=== PATIENT | female | born 1970 | race African-American/Black ===

== ENCOUNTER 2017-09-05 10:18 | Emergency (ER) | payer BC ==
[2017-09-05 10:24] VITALS: BP 137/80; BMI 45.3
--- NOTE | 2017-09-05 10:46 | DR.GENAD ---
HPI - PCP Primary Care Physician: NFD - Complaint/Symptoms Chief Complaint Doctors Comments: Patient presents with complaint of toothache. She admits to taking ibuprofen 400mg w/o relief. Chief Complaint:: FACE SWOLLEN. PT STATES "I HAVE A TOOTH BROKE IN FRONT." REDNESS NOTED ABOVE TOP LIP. EDEMA NOTED ALSO - Source History Provided: Patient - Mode of Arrival Mode of Arrival: Ambulatory - Timing Onset of Chief Complaint: 09/03/17 PMH - PMH Past Medical History: No Past Surgical History: Yes Surgical History: , Hysterectomy - Family History History of Family Medical Conditions: Yes Family Medical History: Diabetes Mellitus, Hypertension - Social History Does any household member use tobacco: No Alcohol Use: None Do you use any recreational Drugs:: No Lives With: Family Lives Where: Home - infectious screening In the last 2 months have you had wt loss of >10#?: NO Have you had fever, night sweats or hemotysis?: No Have you traveled outside the country in the last 6 months?: No Isolation: Standard ROS - Review of Systems Eyes: No Symptoms Reported ENTM: No Symptoms Reported Respiratoy: No Symptoms Reported Cardiovascular: No Symptoms Reported Gastrointestinal/Abdominal: No Symptoms Reported Genitourinary: No Symptoms Reported Neurological: No Symptoms Reported Musculoskeletal: No Symptoms Reported Integumentary: See HPI, Change in Color (erythema right maxilla) Hematologic/Lymphatic: No Symptoms Reported Endocrine: No Symptoms Reported Psychiatric: No Symptoms Reported All Other Systems: Reviewed and Negative PE - Vital Signs Vitals: Temperature 98.7 F Pulse Rate 70 Respiratory Rate 22 Blood Pressure 137/80 O2 Sat by Pulse Oximetry 96 - General Limitations: No Limitations General Appearance: Alert, In No Apparent Distress - Head Head Exam: Normal Inspection, Atraumatic - Eyes Eye exam: Normal Appearance, PERRL, EOMI - ENT ENT Exam: Normal Exam External Ear Exam: Normal External Inspection TM/Canal Exam: Bilateral Normal Nose Exam: Normal Nose Exam Mouth Exam: Normal Inspection Throat Exam: Normal Inspection - Neck Neck Exam: Normal Inspection - Chest Chest Inspection: Normal Inspection, Symmetric Chest Wall Rise - Respiratory Respiratory Exam: Normal Lung Sounds Bilat Respiratory Exam: Bilateral Clear to Auscultation - Cardiovascular Cardiovascular Exam: Regular Rate, Normal Rhythm - Abdominal Exam Abdominal Exam: Normal Inspection Abdominal Tenderness: negative: RUQ, RLQ, LUQ, LLQ, Epigastrium, Suprapubic, Diffuse, Mild, Moderate, Severe, Other - Extremities Extremities Exam: Normal Inspection, Full ROM - Back Back Exam: Normal Inspection - Neurologic Neurological Exam: Alert, Oriented X3, CN II-XII Intact - Psychiatric Psychiatric Exam: Normal Affect, Normal Mood - Skin Skin Exam: Warm, Dry, Intact, Erythema (right maxilla erythemamtous edematous) Course - Education/Counseling Educated On: Treatment, Diagnosis, Prognosis, Needs for Follow Up ROR - XRAY XRAY Interpreted by: Radiologist (CT sinuses: Mild soft tissue swelling can be seen to overlie the right maxilla possible a mild cellulitis. The frontal sinuses are not aerated. The ethomoid sinuses, sphenoid sinuses and maxillary sinuses are bilaterally clear. The ostiomeatal complesex are patent. The nasal septum is midline. The middle ear spaces and mastoid aire cells are clear. Impression Mild soft tissue swelling over the right maxilla possible a mild cellulitis.) - Diagnosis Discharge Problem: Right maxillary sinusitis - Discharge Plan Condition: Stable - Follow ups/Referrals Follow ups/Referrals: NFD,None [Primary Care Provider] - 3 days - Instructions
--- NOTE | 2017-09-05 11:34 | CT ---
HISTORY: Right maxillary facial edema, erythema Study: CT sinuses without contrast Comparison: None Technique: Axial noncontrast images with coronal and sagittal reformats. Dose reduction procedures we re used with mA/kv adjusted for body size. Findings: Mild soft tissue swelling can be seen to overlie the right maxilla possibly a mild cellulitis. The fr ontal sinuses are not aerated. The ethmoid sinuses, sphenoid sinuses and maxillary sinuses are bilate rally clear. The ostiomeatal complexes are patent. The nasal septum is midline. The middle ear spaces and mastoid air cells are clear. IMPRESSION: Clear paranasal sinuses Mild soft tissue swelling over the right maxilla possibly a mild cellulitis Reported By:
[2017-09-05] MEDS ORDERED: DIFLUCAN PO ONE (11:50)
== END 2017-09-05 11:55 | disposition home or self-care (01) ==
LOC: ER 10:31
DX: J32.0 Chronic maxillary sinusitis (principal)
CPT/HCPCS: 70486; 99282